=== PATIENT | male | born 1955 | race Caucasian/White ===

== ENCOUNTER → 2017-03-21 | Outpatient (CLI) | payer BC ==
[2014-12-06 12:22] VITALS: BMI 29.3
[~2017-03-21] MED LIST: ACE3 PO; CEPH-13 PO; COM14R IH; ENOX40DI8 SQ; FLUT1DIS28 IH; HYDR-319 PO; IBUP-1618 PO; OXYC-823 PO
[2017-03-21 09:37] LABS: PLATELET COUNT, AUTOMATED 274 K/uL (150-450)
--- NOTE | 2017-03-21 09:40 | EKG ---
FACILITY: [facility] PATIENT NAME: CRISTI SHEPARD : [id number] MR: [id number] V: [id number] EXAM DATE: ORDERING PHYSICIAN: ANTON MITCHELL TECHNOLOGIST: EMILY Castillo Reason : PREOP-SHOULDER Blood Pressure : / mmHG Vent. Rate : 058 BPM Atrial Rate : 058 BPM P-R Int : 136 ms QRS Dur : 102 ms QT Int : 402 ms P-R-T Axes : 061 079 047 degrees QTc Int : 394 ms Sinus bradycardia Otherwise normal ECG Relatively unchanged Confirmed by JOSE LOZANO ([id number]) on 03/21/2017 11:56:45 AM Referred By: STEPHEN Confirmed By:JOSE LOZANO
--- NOTE | 2017-03-21 11:24 | RADIOLOGY IMAGING REPORT ---
FACILITY: [facility] [place] PATIENT NAME: Haroldo Green : 1955 MR: [id number] V: [id number] EXAM DATE: ORDERING PHYSICIAN: ANTON MITCHELL TECHNOLOGIST: Location: [facility] - [place] Patient: Haroldo Green : 1955 Visit/Account:[id number] Date of Sevice: 03/21/2017 EXAMINATION: PA and Lateral Chest 03/21/2017 9:31 AM HISTORY: Preop for shoulder surgery. History of COPD. Cough. COMPARISON: None FINDINGS: Cardiomediastinal contours: Normal Lungs and pleura: Minimally increased reticular markings in the lungs with slight hyperinflation. No focal infiltrate or consolidation. Pleural spaces are clear. Bones/soft tissues: Incidental ossification of DISH along the thoracic spine. IMPRESSION: No acute cardiopulmonary abnormality. Mildly hyperinflated lungs with chronic appearing minimal reticular prominence the lungs probably coincides with the given history of COPD. Report Dictated By: Fabien Diaz MD at 03/21/2017 11:19 AM Report E-Signed By: Fabien Diaz MD at 03/21/2017 11:21 AM WSN:[email or web address]
== END ==
LOC: RAD 08:57
PROVIDERS: ATTEND Anesthesiology
DX: Z01.812 Encounter for preprocedural laboratory examination (principal); Z01.810 Encounter for preprocedural cardiovascular examination; Z01.818 Encounter for other preprocedural examination; M75.102 Unspecified rotator cuff tear or rupture of left shoulder, not specified as traumatic; R05 Cough; J45.909 Unspecified asthma, uncomplicated; J44.9 Chronic obstructive pulmonary disease, unspecified; R00.1 Bradycardia, unspecified
CPT/HCPCS: 36415; 71046; 82040; 82247; 82310; 82374; 82435; 82565; 82947; 84075; 84132; 84155; 84295; 84450; 84460; 84520; 85025; 93005

== ENCOUNTER 2017-07-13 01:56 | Day surgery (SDC) | payer BC ==
[2014-12-06 12:22] VITALS: Ht 180.3 cm; Wt 88.9 kg
[~2017-07-13] VITALS: Ht 180.3 cm; Wt 88.9 kg
[2017-07-13] MEDS ORDERED: PROPOFOL EMUL(*) 10MG/ML 20 ML 20 ML ONE (08:52)
[2017-07-13 13:28] VITALS: BP 142/104
[2017-07-13] MEDS ORDERED: NORMOSOL R SOLN(*) 1000 ML BAG 1,000 ML IV PRN (13:50)
[2017-07-13] MEDS ORDERED: LIDOCAINE/SOD BICARB 8.4% SYR ID ONE (13:50)
[2017-07-13 15:33] VITALS: BP 102/77
[2017-07-13 15:45] VITALS: BP 113/82
[2017-07-13 15:57] VITALS: BP 134/91
[2017-07-13 16:12] VITALS: BP 138/107
[2017-07-13 16:14] VITALS: BP 147/109
== END 2017-07-13 16:30 | disposition home or self-care (01) ==
LOC: OR 01:56
PROVIDERS: ATTEND Family Medicine
DX: Z12.11 Encounter for screening for malignant neoplasm of colon (principal); D12.5 Benign neoplasm of sigmoid colon
CPT/HCPCS: 00811; 45380; 88305; J2704

== ENCOUNTER 2018-04-23 19:22 | Emergency (ER) | payer BC ==
[2014-12-06 12:22] VITALS: Wt 95.3 kg
[2018-04-23] MEDS ORDERED: MORPHINE 2 MG/ML SYR IVP ONE (19:50)
--- NOTE | 2018-04-23 20:11 | ER Report ---
History and Physical Time Seen By MD: 19:50 Hx. of Stated Complaint: slipped on ice. thinks he broke his left wrist. hurt back HPI/ROS CHIEF COMPLAINT: Wrist injury HISTORY OF PRESENT ILLNESS: 63-year-old male slipped on ice just prior to arrival. He fell back and caught himself with his left, nondominant hand. He noted significant pain in his left wrist. Pain is severe and nonradiating. He does not have extremity numbness. He does not have elbow or shoulder pain. He did not strike head or lose consciousness. Patient does say he struck back and has lower back pain but feels like it was just a muscle strain. He does not have lower extremity weakness or numbness. He presents in severe pain and has not taken anything for pain as of yet. REVIEW OF SYSTEMS: Constitutional: No fever, no chills. Eyes: no blurred vision ENT: no facial injury Cardiovascular: No chest pain, no palpitations. Respiratory: No cough, no shortness of breath. Gastrointestinal: No abdominal pain, no vomiting. Genitourinary: no injury Musculoskeletal: above Skin: no lacerations Neurological: No headache. Remainder of the 14 system rev: Yes Allergies: Coded Allergies: Sulfa (Sulfonamide Antibiotics) (Verified Allergy, Mild, 10/06/10) Home Meds Active Scripts Oxycodone Hcl/Acetaminophen (OXYCODONE-ACETAMINOPHEN 5-325) 1 Each Tablet, 1 EACH PO Q4-6H for PAIN, #20 TAB Prov:ANGY LINDSEY MD 04/23/18 Reported Medications Fluticasone/Salmeterol (ADVAIR 250-50 DISKUS) 1 Each Disk.w.dev, 1 EACH IH BID 07/11/17 Albuterol/Ipratropium (Combivent Inhaler) 14.7 Gm Aer.w.adap, 14.7 GM IH, 0 Refills 10/06/10 Reviewed Nurses Notes: Yes Hx Smoking: No Smoking Status: Former Smoker Hx Substance Use Disorder: No Hx Alcohol Use: Yes Constitutional Vital Sign - Last 24 Hours 04/23/18 04/23/18 04/23/18 04/23/18 19:22 19:27 19:28 19:52 Temp 97.2 Pulse ??? 87 70 Resp 18 B/P (MAP) 93/79 93/79 (84) Pulse Ox 90 91 O2 Delivery Room Air 04/23/18 04/23/18 04/23/18 04/23/18 20:22 20:30 20:35 20:50 Pulse 73 74 ??? B/P (MAP) 136/90 (105) Pulse Ox 91 88 04/23/18 04/23/18 04/23/18 04/23/18 21:01 21:05 21:20 21:33 Pulse 72 76 Resp 12 24 B/P (MAP) 138/99 (112) 141/92 (108) Pulse Ox 91 90 04/23/18 04/23/18 04/23/18 04/23/18 21:35 21:49 21:50 21:55 Pulse 83 87 Resp 30 18 B/P (MAP) 165/109 (127) 159/142 (148) Pulse Ox 94 90 04/23/18 04/23/18 04/23/18 04/23/18 22:00 22:05 22:10 22:15 Pulse 83 127 Resp 9 15 B/P (MAP) 182/119 (140) 186/127 (146) 168/108 (128) 146/113 (124) Pulse Ox 88 84 04/23/18 04/23/18 04/23/18 22:20 22:30 22:45 Pulse 80 88 Resp 19 9 B/P (MAP) 169/113 (131) 140/96 (111) 129/88 (102) Pulse Ox 92 92 Physical Exam General Appearance: The patient is alert, has no immediate need for airway protection and no signs of toxicity. [ ] Eyes: Pupils equal and round no pallor or injection. ENT, Mouth: Mucous membranes are moist. Respiratory: There are no retractions, lungs are clear to auscultation. Cardiovascular: Regular rate and rhythm. Neurological: alert, oriented, no focal deficits Skin: Warm and dry, no rashes. Musculoskeletal: Neck is supple non tender. No midline spine pain. Mild right lower lumbar paraspinal tenderness. No contusion or abrasion. Extremities are nontender, nonswollen and have full range of motion with exception of left wrist. Patient has a volar deformity at left distal forearm. He has full movement of fingers. He has 5 out of 5 muscle strength and fingers. He has normal sensation. Radial pulse is 2+. He has normal cap refill. He has no elbow or shoulder tenderness. [ ] DIFFERENTIAL DIAGNOSIS: After history and physical exam differential diagnosis was considered for Colles' fracture, wrist fracture, scaphoid fracture, other significant injury or emergent result of fall. Medical Decision Making ED Course/Re-evaluation ED Course 63-year-old male presents after fall on outstretched non dominant left wrist. Back is without bony ttp or stepoffs. L wrist deformity and xray c/w comminuted, displaced distal radius fx. After consent and discussion of r/b and with knowledge that he will still likely need definitive operative repair given the comminuted, intra-articular fracture, I reduced. Alignment significantly improved on post reduction film. 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 Pain controlled and pt ambulates without difficulty on d/c. Procedure Procedure: Fracture reduction. After review of the X-rays I determined that a reduction was required for improved oysterman function. The distal radius was reduced using traction and manipulation without complications. A sugar tong splint was applied. Post reduction the patient's neurovascular exam is normal. Post reduction x-ray demonstrates improvement in fracture with an acceptable reduction of the fracture. The procedure was performed by myself. Procedure: Procedural sedation. A pre-sedation evaluation was completed on the patient at 2044. Patient is an appropriate candidate for procedural sedation. The risks of the sedation were discussed with the patient. A time out was completed. The patient was sedated with ketamine. The patient was monitored with continuous pulse oximetry and surveillance system monitor. There were no complications and no significant hypoxemia. I remained at the bedside for the sedation. The total time I spent in the procedural sedation was 50 minutes. Decision to Disposition Date: Apr 23, 2018 Decision to Disposition Time: 22:30 Depart Departure Latest Vital Signs Vital Signs Date Time Temp Pulse Resp B/P (MAP) Pulse Ox O2 Delivery O2 Flow Rate FiO2 04/23/18 22:45 88 9 129/88 (102) 92 04/23/18 19:27 97.2 Room Air Impression: Primary Impression: Colles' fracture of left radius Additional Impression: Fracture of ulnar styloid Condition: Improved Disposition: HOME OR SELF-CARE Referrals: ANTON DIMAS MD (PCP) 5 Days New Scripts Oxycodone Hcl/Acetaminophen (OXYCODONE-ACETAMINOPHEN 5-325) 1 Each Tablet 1 EACH PO Q4-6H for PAIN, #20 TAB Prov: ANGY LINDSEY MD 04/23/18 Patient Instructions: Wrist Fracture in Adults (ED) Additional Instructions: You stated you would follow-up with your orthopedic surgeon tomorrow. Please contact us if you have any difficulty getting an appointment. As we discussed I do anticipate that you may need operative repair of this fracture. You may take oxycodone as prescribed and up to 2 at a time if necessary for pain control. While taking oxycodone please take a stool softener such as MiraLAX to prevent constipation. Take only what you need for pain control in order to prevent physical addiction to medication. Please return for uncontrolled pain, numbness of fingers, or any concerns. Please keep your arm elevated over heart level at all times. Problem Qualifiers Primary Impression: Colles' fracture of left radius Encounter type: initial encounter Fracture type: closed Qualified Codes: S52.532A - Colles' fracture of left radius, initial encounter for closed fracture Additional Impression: Fracture of ulnar styloid Encounter type: initial encounter Fracture type: closed Fracture alignment: displaced Laterality: left Qualified Codes: S52.612A - Displaced fracture of left ulna styloid process, initial encounter for closed fracture ANGY LINDSEY MD Apr 23, 2018 20:11
[2018-04-23] MEDS ORDERED: MORPHINE 4 MG/ML SDV IVP ONE (20:15)
--- NOTE | 2018-04-23 20:28 | RADIOLOGY IMAGING REPORT ---
FACILITY: [facility] PATIENT NAME: Haroldo Green : 1955 MR: [id number] V: [id number] EXAM DATE: ORDERING PHYSICIAN: ANGY LINDSEY TECHNOLOGIST: Location: [facility] - [place] Patient: Haroldo Green : 1955 Visit/Account:[id number] Date of Sevice: 04/23/2018 INDICATION: Deformity of the left wrist after trauma. DATE: 04/23/2018 8:23 PM. TECHNIQUE: XR WRIST 3 OR MORE VIEWS LT, FOREARM LEFT COMPARISON: None FINDINGS: The large distal radial fracture fragment has from the radial shaft and is displa milton dorsally. The fracture is comminuted. There is also a large displaced ulnar styloid fracture frag ment. IMPRESSION: 1. Comminuted and displaced distal radius fracture. 2. Displaced ulnar styloid fracture. Report Dictated By: Diane Elder MD at 04/23/2018 8:23 PM Report E-Signed By: Diane Elder MD at 04/23/2018 8:24 PM WSN:[id number]
--- NOTE | 2018-04-23 20:28 | RADIOLOGY IMAGING REPORT ---
FACILITY: [facility] PATIENT NAME: Haroldo Green : 1955 MR: [id number] V: [id number] EXAM DATE: ORDERING PHYSICIAN: ANGY LINDSEY TECHNOLOGIST: Location: [facility] - [place] Patient: Haroldo Green : 1955 Visit/Account:[id number] Date of Sevice: 04/23/2018 INDICATION: Deformity of the left wrist after trauma. DATE: 04/23/2018 8:23 PM. TECHNIQUE: XR WRIST 3 OR MORE VIEWS LT, FOREARM LEFT COMPARISON: None FINDINGS: The large distal radial fracture fragment has from the radial shaft and is displa milton dorsally. The fracture is comminuted. There is also a large displaced ulnar styloid fracture frag ment. IMPRESSION: 1. Comminuted and displaced distal radius fracture. 2. Displaced ulnar styloid fracture. Report Dictated By: Diane Elder MD at 04/23/2018 8:23 PM Report E-Signed By: Diane Elder MD at 04/23/2018 8:24 PM WSN:[id number]
[2018-04-23] MEDS ORDERED: KETAMINE HCL-NS 50 MG/5 ML SYR IVP ONE (21:10)
[2018-04-23] MEDS ORDERED: KETAMINE HCL-NS 50 MG/5 ML SYR ONE ×2 (21:46→21:50)
[2018-04-23] MEDS ORDERED: OXYC-373 PO (22:36)
[2018-04-23 22:45] VITALS: BP 129/88
[2018-04-23] MEDS ORDERED: oxyCODONE/ACETAMIN 5/325MG TH 2 TAB/BOTTLE PO ONE (22:50)
--- NOTE | 2018-04-23 23:38 | RADIOLOGY IMAGING REPORT ---
FACILITY: [facility] [place] PATIENT NAME: Haroldo Green : 1955 MR: [id number] V: [id number] EXAM DATE: ORDERING PHYSICIAN: ANGY LINDSEY TECHNOLOGIST: Location: [facility] - [place] Patient: Haroldo Green : 1955 Visit/Account:[id number] Date of Sevice: 04/23/2018 LEFT WRIST: Indication: Post-reduction. Technique: 2 views were obtained. Comparison: The prior study from earlier the same day. Findings: The alignment of the distal radial fracture is significantly improved. The ulnar styloid fr acture is not significantly changed. The carpal bones appear intact and unremarkable. A cast has been applied. IMPRESSION: Significantly improved alignment. Report Dictated By: Bill Aj MD at 04/23/2018 10:31 PM Report E-Signed By: Bill Aj MD at 04/23/2018 11:35 PM WSN:[id number]
== END 2018-04-23 23:01 | disposition home or self-care (01) ==
LOC: ER 19:22
DX: S52.532A Colles' fracture of left radius, initial encounter for closed fracture (principal); S52.612A Displaced fracture of left ulna styloid process, initial encounter for closed fracture; W00.0XXA Fall on same level due to ice and snow, initial encounter
CPT/HCPCS: 25605; 73090; 73100; 73110; 99152; 99153; 99285; A4565; J2270; J3490; 96374; 96375